=== PATIENT | male | born 1955 | race Caucasian/White ===

== ENCOUNTER 2022-11-08 08:35 | Day surgery (SDC) | payer MEDICARE, SELFPAY ==
[~2022-11-08 08:35] MED LIST: Lactated Ringers 1,000 ML IV SCH; Sodium Chloride 0.9% 10 ML Syringe FLUSH PRN
[2022-11-08] MEDS ORDERED: Propofol 200 MG/20 ML SDV IV ONE (08:36)
[2022-11-08] MEDS ORDERED: Simethicone Drops 40 MG/0.6 ML 30 ML Bottle ONE (10:41)
[2022-11-08 12:05] VITALS: BP 139/98; PULSE 68
== END 2022-11-08 12:00 | disposition home or self-care (01) ==
LOC: FB.SDS 08:35
PROVIDERS: ATTEND Surgery
DX: Z12.11 Encounter for screening for malignant neoplasm of colon (principal); D12.6 Benign neoplasm of colon, unspecified; K57.30 Diverticulosis of large intestine without perforation or abscess without bleeding; K42.9 Umbilical hernia without obstruction or gangrene; I11.0 Hypertensive heart disease with heart failure; I50.21 Acute systolic (congestive) heart failure; F41.9 Anxiety disorder, unspecified; M19.90 Unspecified osteoarthritis, unspecified site; I48.92 Unspecified atrial flutter; I25.10 Atherosclerotic heart disease of native coronary artery without angina pectoris; E03.9 Hypothyroidism, unspecified; Z86.010 Personal history of colon polyps; Z79.899 Other long term (current) drug therapy; Z79.01 Long term (current) use of anticoagulants; Z98.890 Other specified postprocedural states; Z87.891 Personal history of nicotine dependence
CPT/HCPCS: 00811; 45385; 88305; A9270; J2704; J7120

== ENCOUNTER 2025-03-24 13:32 | Emergency (ER) | payer MEDICARE ==
[2025-03-24] MEDS ORDERED: Sodium Chloride 0.9% 10 ML Syringe FLUSH PRN (14:03)
[2025-03-24 14:11] LABS: BASOPHILS ABSOLUTE AUTO 0.0 x10-3/uL (0.0-0.3); BASOPHILS PERCENT AUTO 0.3 % (0.3-3.8); EOSINOPHILS ABSOLUTE AUTO 0.0 x10-3/uL (0.0-0.6); EOSINOPHILS PERCENT AUTO 0.1 % (0.1-6.8); LYMPHOCYTES ABSOLUTE AUTO 0.9 x10-3/uL (0.5-4.5); LYMPHOCYTES PERCENT AUTO 11.4 % (15.8-45.3); MEAN PLATELET VOLUME 8.7 fL (6.7-11.0); MONOCYTES ABSOLUTE AUTO 0.5 x10-3/uL (0.0-1.2); MONOCYTES PERCENT AUTO 5.9 % (5.5-15.2); NEUTROPHILS ABSOLUTE AUTO 6.7 x10-3/uL (1.7-6.9); NEUTROPHILS PERCENT AUTO 82.3 % (40.3-71.8); PLATELET COUNT,PLT 148 x10(3)uL (117-477); RED BLOOD CELL COUNT 3.55 x10(6)uL (3.90-5.90); RED CELL DISTRIBUTION WIDTH 26.9 % (12.4-15.0); WHITE BLOOD CELL COUNT,WBC 8.2 x10-3/uL (3.2-10.1)
[2025-03-24] MEDS: Ondansetron 4 MG/2 ML SDV IVPUSH ONE (14:11)
[2025-03-24 14:24] LABS: A/G RATIO 0.9; ALANINE AMINOTRANSFERASE,ALT 19 U/L (12-36); ASPARTATE AMNIOTRANSFERASE,AST 36 IU/L (5-25); BILIRUBIN TOTAL 2.1 mg/dL (0.1-1.3); BLOOD UREA NITROGEN,BUN 9 mg/dL (7-18); CARBON DIOXIDE,CO2 26 mmol/L (21-32); CHLORIDE,CL 96 mmol/L (100-110); CREATININE 0.9 mg/dL (0.70-1.30); EST CRCL DRUG DOSING (CG) 92.58 mL/min; ESTIMATED GFR 92 mL/min (>60); GLUCOSE RANDOM 117 mg/dL (80-116); PROTEIN TOTAL,TP 7.3 g/dL (6.0-8.0); SODIUM,NA 136 mmol/L (135-145)
[2025-03-24 14:25] LABS: POTASSIUM,K 2.8 mmol/L (3.5-5.3)
[2025-03-24 14:32] LABS: LACTIC ACID 3.3 mmol/L (0.4-2.0)
[2025-03-24] MEDS: Atropine/Diphenoxylate 0.025-2.5 MG Tab PO ONE (15:04)
[2025-03-24] MEDS: Potassium Chloride 20 MEQ in Premix Bag 1 BAG IV ONE (15:14)
[2025-03-24 18:11] VITALS: BP 147/97; PULSE 87
== END 2025-03-24 18:40 ==
LOC: FB.ED 13:32
DX: K57.30 Diverticulosis of large intestine without perforation or abscess without bleeding (principal); K57.92 Diverticulitis of intestine, part unspecified, without perforation or abscess without bleeding; K80.20 Calculus of gallbladder without cholecystitis without obstruction; E87.6 Hypokalemia; I10 Essential (primary) hypertension; I25.10 Atherosclerotic heart disease of native coronary artery without angina pectoris; I48.91 Unspecified atrial fibrillation; F17.210 Nicotine dependence, cigarettes, uncomplicated; E03.9 Hypothyroidism, unspecified; Z90.49 Acquired absence of other specified parts of digestive tract; Z79.01 Long term (current) use of anticoagulants
CPT/HCPCS: 36415; 74176; 80053; 80307; 83605; 83690; 83735; 85025; 86140; 96361; 96365; 96366; 96375; 99285; A9270; J2405; J3480; J7030